=== PATIENT | male | born 2000 | race Hispanic/Latino ===

== ENCOUNTER 2024-11-27 08:54 | Emergency (ER) | payer OTHER ==
[~2024-11-27] VITALS: Ht 172.7 cm; Wt 104.3 kg
[2024-11-27] MEDS: KETOROLAC 60 MG/2 ML VIAL IM ONE (10:47)
[2024-11-27] MEDS: LIDOCAINE 5% PATCH TD ONE (10:48)
[2024-11-27 11:06] VITALS: TEMP 97.1
[2024-11-27] MEDS ORDERED: MEDR4PAK PO (12:02)
[2024-11-27] MEDS ORDERED: CYCL-707 PO (12:02)
[2024-11-27] MEDS ORDERED: LIDO1ADH93 TOP (12:02)
[2024-11-27 12:13] VITALS: BP 128/78; O2SAT 98
== END 2024-11-27 12:15 | disposition home or self-care (01) ==
LOC: M ED 08:54
DX: S29.012A Strain of muscle and tendon of back wall of thorax, initial encounter (principal); Y92.9 Unspecified place or not applicable; Y93.9 Activity, unspecified; Y99.9 Unspecified external cause status; F17.290 Nicotine dependence, other tobacco product, uncomplicated
CPT/HCPCS: 72125; 72128; 96372; 99283; J1885; J2919